=== PATIENT | female | born 1985 | race Caucasian/White ===

== ENCOUNTER 2022-10-09 08:01 | Emergency (ER) | payer SELFPAY ==
--- NOTE | ~2022-10-09 | XR_ITS ---
EXAMINATION: XR chest 2V DATE: 10/09/2022 08:27 INDICATION: Left-sided chest pain radiating to the left arm TECHNIQUE: PA and lateral views of the chest were obtained. COMPARISON: Chest radiograph dated 04/02/18 FINDINGS: The lungs remain clear with no focal airspace opacities, pulmonary edema, pleural effusion or pneumot horax. The cardiomediastinal silhouette is normal. Mild S-shaped curvature of the thoracic spine with mild spondylosis. And C6-C7. Instrumented anterior spinal fusion with anterior plate-screw fixation and interbody bone graft cage. IMPRESSION: 1. No acute cardiopulmonary disease. Reviewed, dictated and finalized at location [facility]. [facility]
[2022-10-09 08:04] VITALS: BP 118/77; PULSE 67; RESP 18; TEMP 36.4; O2SAT 100
--- NOTE | 2022-10-09 08:04 | ECG_ITS ---
Measurements Intervals [place] Rate: 60 P: 61 NE: 121 QRS: 62 QRSD: 88 T: 56 QT: 407 QTc: 409 Interpretive Statements SINUS RHYTHM WITH SINUS ARRHYTHMIA NO PREVIOUS ECG AVAILABLE FOR COMPARISON Electronically Signed On 10-09-2022 14:59:37 [employer]GE[employer] by Crystal Drake M.D.
[2022-10-09 08:10] VITALS: BP 118/77; PULSE 70; RESP 18; O2SAT 100
[2022-10-09 08:11] VITALS: PULSE 69; RESP 17; O2SAT 100
[2022-10-09 08:15] VITALS: PULSE 64; RESP 8; O2SAT 98
[2022-10-09 08:16] VITALS: BP 121/80; PULSE 64; RESP 13; O2SAT 98
--- NOTE | 2022-10-09 08:20 | ED.CHESTPAIN ---
HPI - Chest Pain General Chief Complaint: Chest Pain Stated Complaint: chest pain Time Seen by Provider: 10/09/22 08:20 Source: patient Mode of arrival: ambulatory Limitations: no limitations History of Present Illness HPI narrative: Patient is a 36-year-old female with history of tobacco use presenting to the emergency department for evaluation of chest pain. Patient reports intermittent chest pain over the past month which at times is described as a dull pressure-like sensation in the lower chest. No radiation to the back, jaw, neck, shoulders. No associated nausea, vomiting, lightheadedness, dizziness, syncopal event, shortness of breath, diaphoresis. Patient states that these episodes are very spontaneous and can sometimes last for anywhere from 20 minutes to 1 hour. She denies associated palpitations. She denies weight loss, night sweats. Patient does smoke three-quarter pack per day for the last 20+ years. Her father had a heart attack in his 60s, he is still living. No family history of sudden cardiac or myocardial infarction's at a young age. Patient is on any oral contraception. She denies history of DVT or PE. She denies recent COVID infection, history of surgery, immobility, long car or air travel. She denies shortness of breath or pleuritic pain. She denies cough or hemoptysis. Patient denies any current pain at the time of assessment. Related Data Allergies Allergy/AdvReac Type Severity Reaction Status Date / Time shellfish derived AdvReac Hives Verified 10/09/22 08:12 Review of Systems Review of Systems: CONSTITUTIONAL: Denies fever, chills, or sweats. EYES: Denies visual changes, redness, or discharge. ENT: Denies rhinorrhea, congestion, sore throat, or otalgia. CARDIOVASCULAR: Denies current chest pain, palpitations, or edema. RESPIRATORY: Denies cough or dyspnea. GASTROINTESTINAL: Denies abdominal pain, nausea, vomiting, or diarrhea. GENITOURINARY: Denies dysuria or hematuria. SKIN: Denies rash or itching. MUSCULOSKELETAL: Denies back pain, joint pain, or myalgia. NEUROLOGIC: Denies headache, numbness, or weakness. [facility] Past Medical History Medical History (Updated 10/09/22 @ 09:08 by Geri Clark MD) No pertinent past medical history Surgical History Surgical History (Updated 10/09/22 @ 08:59 by Geri Clark MD) No pertinent past surgical history Social History Social History (Updated 10/09/22 @ 08:59 by Geri Clark MD) Smoking status: Current every day smoker Tobacco type: cigarettes Alcohol intake: never Substance use: never Lack of Transportation: No Concerned About Future Housing: No Difficulty Paying for Meds: YES Living arrangements: with family Gender identity (if verbalized by the patient): Female Exam Narrative: GENERAL: Awake, alert, conversant HEAD: Normocephalic, atraumatic. EYES: PERRLA and EOMI. ENT: Nares clear, no rhinorrhea or epistaxis. Mucous membranes moist. NECK: Supple. CHEST: No respiratory distress, breathing even and non labored, no chest wall tenderness HEART: Regular rate, sinus rhythm ABDOMEN:Non distended, non tender EXTREMITIES: Normal range of motion. No edema. Negative Homans' sign bilaterally. No erythema, or calf pain bilaterally. SKIN: Warm, dry, no rash. NEURO:No focal deficits. Alert and oriented x3 Course Vital Signs Vital signs: Vital Signs Temperature 36.4 C 10/09/22 08:04 Pulse Rate 67 10/09/22 08:04 Respiratory Rate 18 10/09/22 08:04 Blood Pressure 118/77 10/09/22 08:04 Pulse Oximetry 100 10/09/22 08:04 Oxygen Delivery Room Air 10/09/22 08:04 Temperature 36.4 C 10/09/22 08:04 Pulse Rate 67 10/09/22 08:04 Respiratory Rate 18 10/09/22 08:04 Blood Pressure 118/77 10/09/22 08:04 Pulse Oximetry 100 10/09/22 08:04 Oxygen Delivery Room Air 10/09/22 08:10 MDM - Chest Pain MDM Narrative Medical decision making narrative: Medical decision making
[2022-10-09 08:22] LABS: Basophils Absolute Auto 0.1 K/mm3 (0.0-0.1); Basophils Percent Auto 0.5 % (0.2-1.2); Eosinophils Absolute Auto 0.3 K/mm3 (0-0.3); Eosinophils Percent Auto 3.6 % (0-4.4); Hematocrit 45.5 % (37.0-47.0); Immature Granulocyte Absolute 0.03 K/mm3 (0.00-0.031); Immature Granulocyte Percent A 0.3 % (0-0.5); Lymphocytes Absolute Auto 1.73 K/mm3 (0.9-3.2); Mean Corpuscular Hemoglobin 29.5 pg (26-34); Mean Corpuscular Volume 89.4 fl (80-100); Mean Platelet Volume 10.2 fl (7.4-10.4); Monocytes Absolute Auto 0.5 K/mm3 (0.1-0.6); Monocytes Percent Auto 5.5 % (2.6-8.5); Neutrophils Absolute Auto 6.5 K/mm3 (1.3-6.7); Neutrophils Percent Auto 71.1 % (45.5-73.1); Platelet Count Result 370 k/mm3 (150-375); Red Blood Count 5.09 M/mm3 (4.2-5.4); Red Cell Distribution Width 13.3 % (11.5-14.5); White Blood Count 9.1 K/mm3 (4.5-10.0)
[2022-10-09 08:30] LABS: INR 0.9; Prothrombin Time 12.2 Seconds (11.1-14.7)
[2022-10-09 08:31] LABS: Partial Thromboplastin Time 27.1 SECONDS (22.3-36.8)
[2022-10-09 08:43] LABS: Alanine Aminotransferase 21 U/L (6-35); Albumin Level 4.7 g/dL (3.5-5.1); Alkaline Phosphatase 78 U/L (38-126); Anion Gap 7 mmol/L (8-16); Aspartate Amino Transferase 26 U/L (14-36); Bilirubin,Total 0.5 mg/dL (0.2-1.3); Blood Urea Nitrogen 11 mg/dL (7-17); Calcium 8.9 mg/dL (8.4-10.2); Carbon Dioxide 27 mmol/L (22-30); Chloride 106 mmol/L (98-107); Estimated CRCL calculation 72 ml/min; Estimated Glomerular Filt Rate > 60; Glucose 95 mg/dL (65-110); Lipase 55 U/L (23-300); Potassium 3.9 mmol/L (3.4-5.0); Sodium 140 mmol/L (137-145)
[2022-10-09 08:53] LABS: Troponin I < 0.012 ng/mL (0.000-0.034)
[2022-10-09 09:44] VITALS: BP 132/88; PULSE 82; RESP 16; O2SAT 99
== END 2022-10-09 09:45 | disposition home or self-care (01) ==
PROVIDERS: Emergency Provider Emergency Medicine; PCP Nurse Practitioner Family
DX: R07.89 Other chest pain (principal)
CPT/HCPCS: 36415; 71046; 80053; 83690; 84484; 85025; 85610; 85730; 93005; 99284

== ENCOUNTER 2024-09-18 12:00 | Emergency (ER) | payer SELFPAY ==
--- NOTE | 2024-09-18 12:58 | ED_ITS ---
HPI - General Adult General Chief complaint: Dizziness Stated complaint: Dizziness/Weakness/Nausea Time Seen by Provider: 09/18/24 13:02 Source: patient Mode of arrival: ambulatory Limitations: no limitations History of Present Illness HPI narrative: 38 y/o female presented for c/o nausea. Onset yesterday. States it improved then returned this morning. Today she took dramamine then became lightheaded when standing up. States she has GERD, and will occasionally take otc meds. Denies abdominal pain, vomiting, diarrhea, urinary complaints, cough, palpitations, or chest pain. Pt states she only ate a salad yesterday and has not eaten today. Endorses irregular menses, hx tubal ligation. Related Data Allergies Allergy/AdvReac Type Severity Reaction Status Date / Time shellfish derived AdvReac Hives Verified 09/18/24 13:11 Review of Systems Review of Systems: CONSTITUTIONAL: Denies body aches, fever, chills, or sweats. EYES: Denies visual changes, redness, or discharge. ENT: Denies rhinorrhea, congestion, sore throat, or otalgia. CARDIOVASCULAR: Denies chest pain, palpitations, or edema. RESPIRATORY: Denies cough or dyspnea. GASTROINTESTINAL: Denies abdominal pain, vomiting, or diarrhea. reports nausea GENITOURINARY: Denies dysuria or hematuria. SKIN: Denies rash MUSCULOSKELETAL: Denies back pain, joint pain, or myalgia. NEUROLOGIC: reports lightheadedness. Denies headache, numbness, tingling, or weakness. All systems reviewed & are unremarkable except as noted in HPI and below PMFSH Past Medical History Medical History No pertinent past medical history Surgical History Surgical History No pertinent past surgical history Social History Social History Smoking status: Current every day smoker Tobacco type: cigarettes Alcohol intake: never Substance use: never Lack of Transportation: No Concerned About Future Housing: No Difficulty Paying for Meds: YES Living arrangements: with family Gender identity (if verbalized by the patient): Female Comments At time of signature, I have reviewed and agree with nursing past medical, surgical, social and family history unless otherwise noted. Please see nursing chart for further information. There is no relevant family history pertinent to the presenting complaint Exam Narrative: GENERAL: Well-appearing, and in no acute distress. HEAD: Normocephalic, atraumatic. EYES: EOMI. No redness or drainage. Conjunctivae normal. ENT: Mucous membranes pink and moist. No rhinorrhea. TMs normal bilaterally. Throat normal. Uvula midline. NECK: Normal AROM. CHEST: No respiratory distress. Clear to auscultation. HEART: Regular rate and rhythm. No murmur appreciated. Normal peripheral pulses. ABDOMEN: Soft, nontender, nondistended, normal active bowel sounds. SKIN: Warm, dry, no rash. Capillary refill normal. Normal skin turgor. NEURO: No focal deficits. Alert and oriented x3. Gait steady. PSYCH: Normal affect. No signs of depression or anxiety. Course Course Emergency Course: Patient is aware of diagnosis, understands and agrees to treatment plan. Anticipatory guidance given. Patient agrees to follow-up as directed and is aware of reasons to seek care at the emergency department. Portions of this record may have been created with voice recognition software Level of Care: Express Care Visit Vital Signs Vital signs: Vital Signs Temperature 98.3 F 09/18/24 13:00 Pulse Rate 57 L 09/18/24 13:00 Respiratory Rate 18 09/18/24 13:00 Blood Pressure 105/70 09/18/24 13:00 Pulse Oximetry 99 09/18/24 13:00 Oxygen Delivery Room Air 09/18/24 13:00 Temperature 98.3 F 09/18/24 13:00 Pulse Rate 57 L 09/18/24 13:00 Respiratory Rate 18 09/18/24 13:00 Blood Pressure 105/70 09/18/24 13:00 Pulse Oximetry 99 09/18/24 13:00 Oxygen Delivery Room Air 09/18/24 13:00 Medical Decision Making [facility] Narrative Medical decision making narrative: Discussed physical exam findings. EKG SB 52. Pt states the dizziness is much better, just mild now. Denies dizziness when changing positions. VSS. Advised supportive measures and signs/symptoms to go to the ER. Pt is appropriate for outpt treatment and f/u. Differential Diagnosis Differential Diagnosis: anemia, dehydration, sepsis, arrhythmia, BPPV, labyrinthitis, vestibular neuritis, sinusitis, CVA, migraine, medication side effect Vital Signs Vital Signs: Vital Signs Temperature 98.3 F 09/18/24 13:00 Pulse Rate 57 L 09/18/24 13:00 Respiratory Rate 18 09/18/24 13:00 Blood Pressure 105/70 09/18/24 13:00 Pulse Oximetry 99 09/18/24 13:00 Oxygen Delivery Room Air 09/18/24 13:00 Temperature 98.3 F 09/18/24 13:00 Pulse Rate 57 L 09/18/24 13:00 Respiratory Rate 18 09/18/24 13:00 Blood Pressure 105/70 09/18/24 13:00 Pulse Oximetry 99 09/18/24 13:00 Oxygen Delivery Room Air 09/18/24 13:00 reviewed Lab Data Labs: Lab Results 09/18/24 Range/Units 13:19 POC Influenza A Ag Negative (Negative) POC Influenza B Ag Negative (Negative) POC SARS CoV-2 Ag Negative (Negative) ECG Data EKG #1: Attestation: I personally reviewed and interpreted this ECG as follows: (SB 52 FL 123, QRS 78, QT/ QTC 459/439) ECG completion date: 09/18/24 ECG completion time: 13:38 EKG Interpretation: bradycardia Discharge Plan Discharge Clinical Impression: Nausea Patient Disposition: Home, Self-Care Condition: Stable Instructions: Antibiotic Form, Acute Nausea and Vomiting (ED), Near Syncope (ED) Additional Instructions: For dizziness: Change positions slowly Sit down immediately if you feel dizzy or lightheaded Increase water intake, stay hydrated Eat regular meals For nausea: Take medicine as directed avoid fatty, greasy, fried, acidic or spicy food avoid alcohol and cola beverages Watch for worsening symptoms (headache, vision changes, dizziness that does not go away, chest pain, heart racing, sweating) Go to the ER for these symptoms or any other concerns. follow-up with your primary care provider, call to schedule an appointment Patient Language: [place] Prescriptions: New famotidine [Pepcid] 40 mg tablet 40 mg PO DAILY Qty: 10 0RF ondansetron 4 mg tablet,disintegrating 4 mg PO Q8H PRN (Reason: nausea and vomiting) Qty: 12 0RF Follow-up/Referrals: PHYSICIAN,ASSISTANT [employer] CONTROL OPERATOR [Primary Care Provider] -
[2024-09-18 13:00] VITALS: BP 105/70; PULSE 57; RESP 18; TEMP 36.8; O2SAT 99
--- NOTE | 2024-09-18 13:15 | ECG_ITS ---
Test Date: 2024-09-18 13:38:42 Measurements Intervals [place] Rate: 52 P: 53 AR: 123 QRS: 46 QRSD: 78 T: 30 QT: 459 QTc: 428 Interpretive Statements SINUS BRADYCARDIA POSSIBLE LEFT ATRIAL ENLARGEMENT BASELINE ARTIFACT- I, II, AVR BORDERLINE ECG No previous ECG available for comparison Electronically Signed On 09-18-2024 18:11:45 [employer] WORKER by Odell Talbot D.O.
[2024-09-18 13:21] LABS: EDCOVIDSCREEN Negative (Negative); EDINFLUASCREEN Negative (Negative); EDINFLUBSCREEN Negative (Negative)
[2024-09-18 13:54] LABS: Glucose Point of Care 77 mg/dl (65-105)
== END 2024-09-18 13:55 | disposition home or self-care (01) ==
PROVIDERS: Emergency Provider Nurse Practitioner Family
DX: R11.0 Nausea (principal); Z20.822 Contact with and (suspected) exposure to COVID-19; F17.210 Nicotine dependence, cigarettes, uncomplicated; K21.9 Gastro-esophageal reflux disease without esophagitis
CPT/HCPCS: 82948; 87426; 87804; 93005; 99213; G0463